=== PATIENT | female | born 1970 | race American Indian/Alaskan Native ===

== ENCOUNTER 2020-05-01 18:23 | Emergency (ER) | payer BC ==
--- NOTE | 2020-05-01 18:39 | Emergency Department Report ---
Blank Doc - Documentation Documentation: 49-year-old female that presents with uncontrolled blood sugars. Patient rece ived steroid shots to lumbar spine and was sent by PCP due to elveated sugar levels. This initial assessment/diagnostic orders/clinical plan/treatment(s) is/are subject to change based on patient's health status, clinical progression and re- assessment by fellow clinical providers in the ED. Further treatment and workup at subsequent clinical providers discretion. Patient/guardians urged not to elope from the ED as their condition may be serious if not clinically assessed and managed. Initial orders include: 1- Patient sent to MAIN ED for further evaluation and treatment 2- labs 3- UA
[2020-05-01 18:43] VITALS: BP 157/77
[2020-05-01 19:08] LABS: Basophils % (Auto) 0.4 % (0.0-1.8); Eosinophils % (Auto) 0.2 % (0.0-4.3); Hematocrit 40.5 % (30.3-42.9); Hemoglobin 13.5 gm/dl (10.1-14.3); Lymphocytes # (Auto) 2.2 K/mm3 (1.2-5.4); Lymphocytes % (Auto) 23.4 % (13.4-35.0); Mean Corpuscular HGB Conc 33 % (30-34); Mean Corpuscular Volume 85 fl (79-97); Monocytes # (Auto) 0.5 K/mm3 (0.0-0.8); Monocytes % (Auto) 5.4 % (0.0-7.3); Platelet Count 185 K/mm3 (140-440); Red Blood Count 4.75 M/mm3 (3.65-5.03); Red Cell Distribution Width 13.9 % (13.2-15.2)
[2020-05-01 19:22] LABS: BUN/Creatinine Ratio 24; Blood Urea Nitrogen 19 mg/dL (7-17); Calcium 9.7 mg/dL (8.4-10.2)
[2020-05-01 19:23] LABS: Alanine Aminotransferase 23 units/L (7-56); Albumin 4.2 g/dL (3.9-5); Bilirubin,Direct < 0.2 mg/dL (0-0.2); Hemolysis Index 3
--- NOTE | 2020-05-01 20:33 | Emergency Department Report ---
ED General Adult HPI - General Chief complaint: Hyperglycemia Stated complaint: HYPERGYCEMIA (540) PUI?: No Time Seen by Provider: 05/01/20 20:15 Source: patient Mode of arrival: Ambulatory Limitations: No Limitations - History of Present Illness Initial comments: Patient is a 49-year-old female that presents emergency room with complaints of hyperglycemia. Patient has a history of diabetes. Patient recently had a spinal injection with steroids and that has caused her hyperglycemia to go up. 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 Patient states she is from [place] but she is currently in [place] on assignment. Patient states she called her primary care and he told to come the emergency room to have some labs done. Patient's blood sugar has improved while in the ER. Patient's blood sugar at home was 580. Patient's current blood glucose in the emergency room is 345. Patient denies chest pain. Patient denies shortness of breath. Patient denies any other symptoms. Patient denies increased thirst or urination. Patient has a long history of diabetes. Patient is currently taking Lantus and NovoLog. Patient takes 25 units of Lantus at night and NovoLog 12 units with meals. Patient states she took an extra 3 units of insulin which did not bring her sugar down. Patient denies recent travel. Patient denies recent international travel. Patient denies exposure to the novel coronavirus. Patient denies sick contacts. Patient denies fever and chills. Patient denies cough. Patient denies diarrhe a. Patient denies coming in contact with anybody with symptoms of the novel coronavirus. -: Sudden Severity scale (0 -10): 0 Consistency: constant Improves with: other (water) Worsens with: medication Associated Symptoms: denies other symptoms. denies: confusion, chest pain, cough, diaphoresis, fever/chills, headaches, loss of appetite, malaise, nausea/vomiting, rash, seizure, shortness of breath, syncope, weakness Treatments Prior to Arrival: other - Related Data Previous Rx's Medication Instructions Recorded Last Taken Type Albuterol Mdi (or & Nicu Only) 1 puff IH Q4HR PRN #8.5 gram 02/06/20 Unknown Rx [ProAir HFA Inhaler] Azithromycin [Zithromax Z-NADINE] 0 mg PO DAILY #1 pack 02/06/20 Unknown Rx Codeine Phosphate/Guaifenesin 5 ml PO Q6HR #75 liquid 02/06/20 Unknown Rx [Guaifen-Codeine 200-20 mg/10Ml] Prednisone [predniSONE 10 mg 10 mg PO .TAPER #1 tab.ds.pk 02/06/20 Unknown Rx (6-Day Pack, 21 Tabs)] Allergies Allergy/AdvReac Type Severity Reaction Status Date / Time No Known Allergies Allergy Unverified 02/06/20 13:09 ED Review of Systems ROS: Stated complaint: HYPERGYCEMIA (540) Other details as noted in HPI Constitutional: denies: chills, fever Eyes: denies: eye pain, eye discharge, vision change ENT: denies: ear pain, throat pain Respiratory: denies: cough, shortness of breath, wheezing Cardiovascular: denies: chest pain, palpitations Endocrine: no symptoms reported Gastrointestinal: denies: abdominal pain, nausea, diarrhea Genitourinary: denies: urgency, dysuria, discharge Musculoskeletal: denies: back pain, joint swelling, arthralgia Skin: denies: rash, lesions Neurological: denies: headache, weakness, paresthesias Psychiatric: denies: anxiety, depression Hematological/Lymphatic: denies: easy bleeding, easy bruising ED Past Medical Hx - Past Medical History Previous Medical History?: Yes Hx Diabetes: Yes Additional medical history: Hypothyroid - Surgical History Past Surgical History?: No - Family History Family history: no significant - Social History Smoking Status: Never Smoker Substance Use Type: None - Medications Home Medications: Home Medications Medication Instructions Recorded Confirmed Last Taken Type Albuterol Mdi (or & Nicu Only) 1 puff IH Q4HR PRN #8.5 gram 02/06/20 Unknown Rx [ProAir HFA Inhaler] Azithromycin [Zithromax Z-NADINE] 0 mg PO DAILY #1 pack 02/06/20 Unknown Rx Codeine Phosphate/Guaifenesin 5 ml PO Q6HR #75 liquid 02/06/20 Unknown Rx [Guaifen-Codeine 200-20 mg/10Ml] Prednisone [predniSONE 10 mg 10 mg PO .TAPER #1 tab.ds.pk 02/06/20 Unknown Rx (6-Day Pack, 21 Tabs)] ED Physical Exam - General Limitations: No Limitations General appearance: alert, in no apparent distress - Head Head exam: Present: atraumatic, normocephalic - Eye Eye exam: Present: normal appearance - ENT ENT exam: Present: mucous membranes moist - Neck Neck exam: Present: normal inspection - Respiratory Respiratory exam: Present: normal lung sounds bilaterally. Absent: respiratory distress, wheezes, rales - Cardiovascular Cardiovascular Exam: Present: regular rate, normal rhythm. Absent: systolic murmur, diastolic murmur, rubs, gallop - GI/Abdominal GI/Abdominal exam: Present: soft, normal bowel sounds - Extremities Exam Extremities exam: Present: normal inspection - Back Exam Back exam: Present: normal inspection - Neurological Exam Neurological exam: Present: alert, oriented X3 - Psychiatric Psychiatric exam: Present: normal affect, normal mood - Skin Skin exam: Present: warm, dry, intact, normal color. Absent: rash ED Course Vital Signs 05/01/20 18:42 Temperature 98.6 F Pulse Rate 80 Respiratory 18 Rate Blood Pressure 157/77 O2 Sat by Pulse 99 Oximetry - Reevaluation(s) Reevaluation #1: I discussed all results and clinical findings with patient. I discussed plan of care with patient. Patient agrees with plan of care. Patient is stable for discharge. Patient will be discharged home. Patient given discharge instructions. Patient voiced understanding of discharge instructions. 05/01/20 20:46 ED Medical Decision Making - Lab Data Result diagrams: 05/01/20 18:43 05/01/20 18:43 - Medical Decision Making Patient is a 49-year-old female who presents emergency room with complaints of hyperglycemia. Patient had labs done which were essentially unremarkable. Patient does not have any DKA or HHS. Patient's only abnormality on her labs was hyperglycemia. Patient had a recent steroid injection into her back and has caused her to have hyperglycemia. 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 Patient's last blood sugar was 345. Patient does not require any further evaluation treatment in the ER. Patient given a sliding scale insulin to use while she is having hypoglycemia secondary to the steroids. Sliding scale was given was current blood sugar minus ideal blood glucose of 100 divided by correction fraction of 30 equals a number of NovoLog units to be given, (BG-idealBG/30) equals the number of units of NovoLog insulin. Patient is stable for discharge. Patient given discharge instructions. Patient voiced understanding of at all discharge instructions. - Differential Diagnosis Hyperglycemia, side effect, medication reaction, DKA, HHS Critical care attestation.: If time is entered above; I have spent that time in minutes in the direct care of this critically ill patient, excluding procedure time. ED Disposition Clinical Impression: Hyperglycemia, Steroid-induced hyperglycemia Diabetes Qualifiers: Diabetes mellitus type: type 2 Diabetes mellitus nursing home insulin use: with terminal gauger use Diabetes mellitus complication status: without complication Qualified Code(s): E11.9 - Type 2 diabetes mellitus without complications; Z79.4 - prison (current) use of insulin Disposition: DC- TO HOME OR SELFCARE Is pt being admited?: No Does the pt Need Aspirin: No Condition: Stable Instructions: Diabetes Mellitus Type 2 in Adults (ED), Diabetic Hyperglycemia (ED) Additional Instructions: Patient's elevated blood sugar is secondary to reaction to steroids given for her back injection. Patient to use discussed sliding scale insulin to cover the side effect of the steroids. Patient to follow-up with primary care in 2 to 3 days. Patient to rest. Patient to increase water. Patient to eat a diabetic diet. Patient to monitor blood sugars and keep a log and take it to all of her follow-up appointments. Patient to take Tylenol or ibuprofen as needed for pain. Patient to take meds as directed. Patient to return to the ER if condition worsens, changes or new symptoms arise. Time of Disposition: 20:44
== END 2020-05-01 21:03 | disposition home or self-care (01) ==
LOC: ED 18:23
DX: E11.65 Type 2 diabetes mellitus with hyperglycemia (principal); Z79.2 Long term (current) use of antibiotics; Z79.899 Other long term (current) drug therapy
CPT/HCPCS: 36415; 80048; 80076; 82805; 82962; 85025